=== PATIENT | female | born 1955 | race Asian ===

== ENCOUNTER 2018-03-18 11:24 | Emergency (ER) | payer MEDICAID ==
[~2018-03-18] VITALS: Ht 162.6 cm; Wt 68.0 kg
[2018-03-18 11:40] VITALS: Ht 162.6 cm; Wt 68.0 kg
[2018-03-18 12:50] VITALS: BP 126/79
== END 2018-03-18 12:50 | disposition home or self-care (01) ==
LOC: ED 11:24
DX: Z04.1 Encounter for examination and observation following transport accident (principal); V49.9XXA Car occupant (driver) (passenger) injured in unspecified traffic accident, initial encounter; Y93.73 Activity, racquet and hand sports; Y92.89 Other specified places as the place of occurrence of the external cause; Y99.8 Other external cause status